=== PATIENT | female | born 1945 | race American Indian/Alaskan Native ===

== ENCOUNTER 2018-02-25 07:06 | Day surgery (SDC) | payer MEDICARE ==
[~2018-02-25 07:06] MED LIST: ANCEF/STERILE WATER 2 GM/20 ML 2 GM/20 ML SYRINGE IV NR; DILAUDID IV PRN; NACL 0.9% 1000 ML 1,000 ML IV SCH; VERSED IV NR; ZOFRAN IV PRN
[2018-02-25] MEDS ORDERED: ROBINUL ONE (09:00)
[2018-02-25] MEDS ORDERED: ANCEF/STERILE WATER 2 GM/20 ML IV NR (09:00)
[2018-02-25] MEDS ORDERED: XYLOCAINE MPF 2% ONE (09:04)
[2018-02-25] MEDS ORDERED: SUBLIMAZE ONE (09:05)
[2018-02-25] MEDS ORDERED: DIPRIVAN 10 MG/ML IV ONE (09:05)
--- NOTE | 2018-02-25 09:13 | Anesthesia Day of Surgery ---
Anesthesia Day of Surgery - Day of Surgery Patient Examined: Yes Patient H&P Reviewed: Yes Patient is NPO: Yes
--- NOTE | 2018-02-25 09:13 | Anesthesia Consultation ---
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
[2018-02-25] MEDS ORDERED: PEPCID PO NR (10:00)
--- NOTE | 2018-02-25 10:37 | Short Stay Summary ---
Short Stay Documentation Date of service: 02/25/18 - History H&P: obtained from office - Allergies and Medications Current Medications: Allergies No Known Allergies Allergy (Verified 01/22/18 12:06) Home Medications Medication Instructions Recorded Confirmed Last Taken Type Acyclovir [Zovirax] 400 mg PO BID 02/10/18 02/25/18 02/24/18 19:00 History Aspirin [Lo-Dose Aspirin EC] 81 mg PO DAILY 02/10/18 02/25/18 02/17/18 09:00 History Hydrochlorothiazide [Hctz] 12.5 mg PO QDAY 02/10/18 02/25/18 02/25/18 06:30 History Levothyroxine [Synthroid] 100 mcg PO QAM 02/10/18 02/25/18 02/25/18 06:30 History Losartan [Cozaar] 100 mg PO QDAY 02/10/18 02/25/18 02/25/18 06:30 History Lovastatin [Altoprev] 20 mg PO QPM 02/10/18 02/25/18 02/24/18 19:00 History Multivit-Min/FA/Lycopen/Lutein 1 each PO DAILY 02/10/18 02/25/18 02/24/18 09:00 History [Centrum Silver Tablet] [place]-3S/Dha/Epa/Fish Oil/D3 1 each PO DAILY 02/10/18 02/25/18 02/24/18 09:00 History [[place]-3 + D Softgel] Pregabalin [Lyrica] 75 mg PO BID 02/10/18 02/25/18 02/24/18 19:00 History amLODIPine [Norvasc] 5 mg PO DAILY 02/10/18 02/25/18 02/25/18 06:30 History Active Medications Cefazolin Sodium (Ancef/Sterile Water 2 Gm/20 Ml) 2 gm IV PREOP NR Stop: 02/25/18 15:00 Famotidine (Pepcid) 20 mg PO PREOP NR Stop: 02/25/18 11:00 Last Admin: 02/25/18 09:30 Dose: 20 mg Sodium Chloride (Nacl 0.9% 1000 Ml) 1,000 mls @ 100 mls/hr IV DIRECT LACHO Last Admin: 02/25/18 09:05 Dose: 100 mls/hr - Brief post op/procedure progress note Date of procedure: 02/25/18 Pre-op diagnosis: left renal stone Post-op diagnosis: same Procedure: ESWL - LEFT Anesthesia: GETA Surgeon: GALE PIERRE Estimated blood loss: none Pathology: none Condition: stable - Hospital course Hospital course: norco & post opinfo on chart - Disposition Condition at discharge: Stable Disposition: DC-01 TO HOME OR SELFCARE Short Stay Discharge Plan Follow up with: CRIS FONSECA MD [Primary Care Provider] - 7 Days
--- NOTE | 2018-02-25 11:12 | Operative Report ---
PREOPERATIVE DIAGNOSIS: Left renal stone, 8 mm. POSTOPERATIVE DIAGNOSIS: Left renal stone, 8 mm. PROCEDURE: Extracorporal shock wave lithotripsy. SURGEON: Robert Patiño MD ANESTHESIA: General. ESTIMATED BLOOD LOSS: Minimal. FLUIDS: Crystalloid. COMPLICATIONS: No complications. INDICATIONS: This patient is a 72-year-old female seen by Dr. Mathur in the office, found to have an 8 mm stone with pain. Discussed options, the patient agreed to proceed with surgical intervention. DESCRIPTION OF PROCEDURE: The patient was taken to the operative suite, placed in a supine position. After adequate general anesthesia, her stone was localized in 2 planes using fluoroscopy. Extracorporal shock wave lithotripsy was administered with a maximum kV of 4, 2500 shocks. Renal pause after 200 shocks for 5 minutes was performed. The patient tolerated the procedure well. She was extubated and taken to recovery room. She will go home on [place], follow up in the office. JOB# [id number] NELSON/JW
[2018-02-25 11:32] VITALS: BP 120/56
--- NOTE | 2018-02-25 13:09 | Post Anesthesia Evaluation ---
- Post Anesthesia Evaluation Patient Participated: Yes Airway Patent: Yes Stable Respiratory Function: Yes Nausea/Vomiting: No Temp > 96.8F: Yes Pain Manageable: Yes Adequeate Hydration: Yes Anesthesia Complications: No
== END 2018-02-25 11:55 | disposition home or self-care (01) ==
LOC: OR 07:06
PROVIDERS: ATTEND Urology
DX: N20.0 Calculus of kidney (principal); E78.00 Pure hypercholesterolemia, unspecified; E11.9 Type 2 diabetes mellitus without complications; E89.0 Postprocedural hypothyroidism; I10 Essential (primary) hypertension; Z79.82 Long term (current) use of aspirin; Z79.899 Other long term (current) drug therapy; Z98.51 Tubal ligation status; Z98.49 Cataract extraction status, unspecified eye; Z90.710 Acquired absence of both cervix and uterus; Z98.891 History of uterine scar from previous surgery; Z92.3 Personal history of irradiation; Z85.79 Personal history of other malignant neoplasms of lymphoid, hematopoietic and related tissues; Z98.890 Other specified postprocedural states
CPT/HCPCS: 50590; 82962; J0690; J2704; J3010; J7030

== ENCOUNTER 2018-11-11 10:29 | Day surgery (SDC) | payer MEDICARE ==
[2018-11-11] MEDS ORDERED: LACTATED RINGERS 1,000 ML ONE (11:45)
--- NOTE | 2018-11-11 11:48 | Short Stay Summary ---
Short Stay Documentation Date of service: 11/11/18 - History H&P: obtained from office - Allergies and Medications Current Medications: Allergies No Known Allergies Allergy (Verified 01/22/18 12:06) Home Medications Medication Instructions Recorded Confirmed Last Taken Type Acyclovir [Zovirax] 400 mg PO BID 02/10/18 11/04/18 02/24/18 19:00 History Aspirin [Lo-Dose Aspirin EC] 81 mg PO DAILY 02/10/18 11/04/18 02/17/18 09:00 History Levothyroxine [Synthroid] 100 mcg PO QAM 02/10/18 11/04/18 02/25/18 06:30 History Losartan [Cozaar] 100 mg PO QDAY 02/10/18 11/04/18 02/25/18 06:30 History Lovastatin [Altoprev] 20 mg PO QPM 02/10/18 11/04/18 02/24/18 19:00 History Multivit-Min/FA/Lycopen/Lutein 1 each PO DAILY 02/10/18 11/04/18 02/24/18 09:00 History [Centrum Silver Tablet] [place]-3S/Dha/Epa/Fish Oil/D3 1 each PO DAILY 02/10/18 11/04/18 02/24/18 09:00 History [[place]-3 + D Softgel] Pregabalin [Lyrica] 75 mg PO BID 02/10/18 11/04/18 02/24/18 19:00 History amLODIPine [Norvasc] 5 mg PO DAILY 02/10/18 11/04/18 02/25/18 06:30 History hydroCHLOROthiazide [Hctz] 12.5 mg PO QDAY 02/10/18 11/04/18 02/25/18 06:30 History Active Medications Cefazolin Sodium (Ancef/Sterile Water 2 Gm/20 Ml) 2 gm IV PREOP NR - Brief post op/procedure progress note Date of procedure: 11/11/18 Pre-op diagnosis: renas stones 5 and 3mm Post-op diagnosis: same Procedure: renal eswl left Anesthesia: GETA Findings: fair vis fair frag Surgeon: ZEFERINO SAMANIEGO Estimated blood loss: minimal Pathology: none Condition: stable - Hospital course Hospital course: orpacuhome - Disposition Condition at discharge: Good Disposition: DC-01 TO HOME OR SELFCARE Short Stay Discharge Plan Activity: advance as tolerated Diet: advance as tolerated Additional Instructions: AVOID STRAINING. STRAIN ALL URINE. CALL FOR F/U APPT. INCREASE ORAL FLUIDS. Follow up with: ZEFERINO SAMANIEGO MD [Staff Physician] - 7 Days Forms: Work/School Excuse Out Patient, Outpatient Surgery [place] [facility].
[2018-11-11] MEDS ORDERED: ANCEF/STERILE WATER 2 GM/20 ML IV NR (12:00)
[2018-11-11] MEDS ORDERED: DILAUDID ONE (12:01)
[2018-11-11] MEDS ORDERED: DIPRIVAN 10 MG/ML IV ONE (12:01)
[2018-11-11] MEDS ORDERED: XYLOCAINE MPF 2% ONE (12:02)
[2018-11-11] MEDS ORDERED: SUBLIMAZE IV PRN (12:07)
--- NOTE | 2018-11-11 12:07 | Anesthesia Consultation ---
Anesthesia Consult and Med Hx Date of service: 11/11/18 - Airway Anesthetic Teeth Evaluation: Dentures ROM Head & Neck: Adequate Mental/Hyoid Distance: Adequate Mallampati Class: Class II Intubation Access Assessment: Probably Good - Pulmonary Exam CTA: Yes - Cardiac Exam Cardiac Exam: RRR - Pre-Operative Health Status ASA Pre-Surgery Classification: ASA3 Proposed Anesthetic Plan: General - Pulmonary Hx Smoking: No Hx Sleep Apnea: No (VALE PRE SCREEN LOW RISK) - Cardiovascular System Hx Hypertension: Yes Hx Heart Attack/AMI: No Hx Percutaneous Transluminal Coronary Angioplasty (PTCA): No Hx Heart Murmur: Yes - Central Nervous System CVA: No Hx Psychiatric Problems: Yes - Gastrointestinal Hx Gastroesophageal Reflux Disease: No - Endocrine Hx Renal Disease: No Hx Non-Insulin Dependent Diabetes: Yes (last A1c 5.5 per patient) Hx Hypothyroidism: Yes - Hematic Hx Anemia: Yes - Other Systems Hx Cancer: Yes (hx multiple myeloma in 2014 with chemo and radiation) - Additional Comments Anesthesia Medical History Comments: No hx anesthetic complications. ASA held x8 days.
--- NOTE | 2018-11-11 12:07 | Anesthesia Day of Surgery ---
Anesthesia Day of Surgery - Day of Surgery Patient Examined: Yes Patient H&P Reviewed: Yes Patient is NPO: Yes
[2018-11-11] MEDS ORDERED: ZOFRAN ONE (12:54)
[2018-11-11] MEDS ORDERED: ROBINUL ONE (13:16)
[2018-11-11] MEDS ORDERED: ROBINUL IV NR (13:30)
[2018-11-11 17:37] VITALS: BP 132/75
--- NOTE | 2018-11-12 07:41 | XRay Report ---
ABDOMEN RADIOGRAPHS INDICATION: Renal stone. COMPARISON: 07/05/2018 x-ray and US. FINDINGS: Portable, frontal abdominal radiograph, 2 images again demonstrate vague, nonspecific left mid abdominal densities, projecting about the region of the left kidney in this patient with few right lower quadrant surgical clips and staple densities also again noted. No other definite focal suspicious calcifications, pneumatosis or pneumoperitoneum. Overall nonobstructive bowel gas pattern with an air containing small bowel loop caliber in the left hemiabdomen 2.4 cm. Mild to moderate ascending colon stool. Clear visualized lung bases. Demineralized bones with few degenerative changes. CONCLUSION: 1. Subtle left mid abdominal radiodensities may again project over the expected location of the left kidney, though remain nonspecific and indeterminate as on prior ultrasound and may be more accurately assessed for with CT, if not already obtained. 2. Other findings, including possible bowel related postsurgical changes and few bony degenerative findings, as above. Thank you for the opportunity to participate in this patient's care.
--- NOTE | 2018-11-16 13:13 | Operative Report ---
Operative Report Operative Report: Dictated
--- NOTE | 2018-11-25 08:26 | Operative Report ---
PREOPERATIVE DIAGNOSIS: Left renal stones, 5 and 3 mm. POSTOPERATIVE DIAGNOSIS: Left renal stones, 5 and 3 mm. PROCEDURE: Left renal ESWL. ANESTHESIA: General. FINDINGS: Fair visualization, fair fragmentation. SURGEON: Nilesh Mathur MD ESTIMATED BLOOD LOSS: Minimal. PATHOLOGY: None. CONDITION: Stable. CLINICAL INDICATIONS: Counseled RCBA, antibiotics, SCDs. The patient wanted elective ESWL, antibiotics, SCDs. DESCRIPTION OF PROCEDURE: Transferred to OR suite in supine position, anesthesia begun. Biplanar fluoroscopy was used to target the left stone. There was fair visualization. Was difficult initially, but did locate the stone. A total of 3000 shocks were delivered, intermittent repositioning as necessary. At the end of the procedure, there was mild decrease in density. The patient was awakened and transferred to PACU in good and stable condition. JOB# [id number] ATS/NTS
== END 2018-11-11 15:10 | disposition home or self-care (01) ==
LOC: OR 10:29
PROVIDERS: ATTEND Urology
DX: N20.0 Calculus of kidney (principal); E78.00 Pure hypercholesterolemia, unspecified; I10 Essential (primary) hypertension; E11.9 Type 2 diabetes mellitus without complications; E03.9 Hypothyroidism, unspecified; Z98.890 Other specified postprocedural states; Z80.8 Family history of malignant neoplasm of other organs or systems; Z90.710 Acquired absence of both cervix and uterus; Z79.899 Other long term (current) drug therapy; Z79.82 Long term (current) use of aspirin; Z98.49 Cataract extraction status, unspecified eye; Z86.2 Personal history of diseases of the blood and blood-forming organs and certain disorders involving the immune mechanism
CPT/HCPCS: 50590; 74018; 82962; J0690; J1170; J2405; J2704; J7120

== ENCOUNTER 2018-11-18 13:43 | Outpatient (CLI) | payer MEDICARE ==
--- NOTE | 2018-11-18 14:17 | XRay Report ---
AP ABDOMEN: HISTORY: Calculus of kidney. The abdominal gas pattern is unremarkable. No masses or organomegaly is identified and there is no gross evidence of free air or fluid. No significant soft tissue calcifications are noted. No definitive nephrolithiasis on the KUB. IMPRESSION: Unremarkable abdomen.
== END 2018-11-18 13:44 | disposition home or self-care (01) ==
LOC: XRAY 13:43
PROVIDERS: ATTEND Urology
DX: N20.0 Calculus of kidney (principal); E78.00 Pure hypercholesterolemia, unspecified; I10 Essential (primary) hypertension; E03.9 Hypothyroidism, unspecified; E11.9 Type 2 diabetes mellitus without complications; Z90.710 Acquired absence of both cervix and uterus
CPT/HCPCS: 74018